=== PATIENT | female | born 1980 | race Hispanic/Latino ===

== ENCOUNTER 2018-02-11 15:21 | Emergency (ER) | payer SELFPAY ==
[~2018-02-11 15:21] MED LIST: ISOVUE-370 76%-LOCM 1 ML ONE
[2018-02-11 16:23] LABS: #Eosinphils 0.1 thou/uL (0.0-0.7); #Monocytes 0.3 thou/uL (0.11-0.59); #Neutrophils 6.2 thou/uL (1.40-6.50); %Basophils 0.1 % (0.0-1.0); %Eosinophils 1.2 % (0.0-10.0); %Lymphocytes 12.8 % (21.0-51.0); %Monocytes 3.8 % (0.0-10.0); %Neutrophils 82.1 % (42.0-75.0); Hemoglobin 14.8 g/dL (12.0-16.0); Mean Corpuscular HGB CONC 33.6 g/dL (32.0-36.0); Mean Corpuscular Volume 98.3 fl (81.0-99.0); Mean Platelet Volume 8.8 fL (7.4-10.4); Platelet Count 193 thou/uL (130-400); RBC Distribution Width 11.3 % (11.5-14.5); White Blood Cell (WBC) Count 7.6 thou/uL (4.8-10.8)
[2018-02-11 16:35] LABS: Bilirubin Negative (Negative); Blood, Urine Negative (Negative); Clarity CLEAR (Clear); Glucose, Urine (Dipstick) 500 mg/dL (Negative); Leukocyte Negative (Negative); Nitrite Negative (Negative); Protein, Urine (Dipstick) Negative (Neg-Trace); Specific Gravity, Urine 1.035 (1.002-1.036)
[2018-02-11 16:36] LABS: Pregnancy Test - Urine (BHCG) Negative (Negative); Pregu Control Background? CLEAR/WHITE (CLR/WHITE); Pregu Control Bar Appear? YES (CONTROL BAR); Specific Gravity 1.035 (1.002-1.036)
[2018-02-11 16:42] LABS: ALT (SGPT) 119 U/L (8-55); AST (SGOT) 79 U/L (5-34); Albumin 4.1 g/dL (3.5-5.0); Alkaline Phosphatase 154 U/L (40-150); Anion Gap 10 mmol/L (10-20); BUN (Urea Nitrogen) 9 mg/dL (7.0-18.7); Bilirubin, Total 0.7 mg/dL (0.2-1.2); Calc. Creatinine Clearance 0 mL/min (70-130); Calcium 8.8 mg/dL (7.8-10.44); Carbon Dioxide 27 mmol/L (22-29); Chloride 102 mmol/L (98-107); Estimated GFR-MDRD Greater than 90; Globulin 3.4 g/dL (2.4-3.5); Glucose 272 mg/dL (70-105); Potassium 3.8 mmol/L (3.5-5.1); Protein, Total 7.5 g/dL (6.0-8.3); Sodium 135 mmol/L (136-145)
[2018-02-11] MEDS ORDERED: Morphine 5 MG/ML SYRINGE ONE ×2 (17:20→17:29)
[2018-02-11] MEDS ORDERED: Ondansetron HCl/PF 4 MG/2 ML Vial ONE (17:23)
[2018-02-11] MEDS ORDERED: Promethazine HCl 25 MG/ML VIAL ONE (19:47)
--- NOTE | 2018-02-11 21:08 | CT ---
CT PULMONARY ANGIO OF CHEST WITH CONTRAST: 02/11/18 Axial tomograms were obtained with pulmonary artery enhancement. Multiplanar reconstruction and 3D po stprocessing. HISTORY: Chest pain. Pulmonary arteries exhibit suboptimal opacification. Peripheral pulmonary emboli cannot be excluded o n this study. There is no evidence of proximal pulmonary embolus in either main pulmonary artery. The mediastinum is unremarkable. The lungs appear clear. There is no evidence of infiltrate. Images thro ugh upper abdomen unremarkable. Thoracic aorta is unremarkable. IMPRESSION: 1. Suboptimal pulmonary artery opacification. No evidence of proximal pulmonary embolus. 2. No evidence of acute lung process. POS: [facility]
== END 2018-02-11 20:51 | disposition home or self-care (01) ==
LOC: ERS 15:21
DX: R07.9 Chest pain, unspecified (principal); R10.9 Unspecified abdominal pain; M54.9 Dorsalgia, unspecified; E66.9 Obesity, unspecified; I10 Essential (primary) hypertension
CPT/HCPCS: 36415; 71275; 80053; 81003; 81025; 83605; 83690; 85025; 87040; 87086; 96361; 96374; 96375; 96376; J2270; J2405; J2550

== ENCOUNTER 2018-05-26 14:53 | Inpatient (IN) | payer SELFPAY ==
[2018-05-26] MEDS ORDERED: Ondansetron ODT 4 MG TAB ONE (15:23)
[2018-05-26] MEDS ORDERED: Pantoprazole 40 MG VIAL ONE (15:23)
[2018-05-26 15:41] LABS: #Eosinphils 0.1 thou/uL (0.0-0.7); #Monocytes 0.4 thou/uL (0.11-0.59); #Neutrophils 4.8 thou/uL (1.40-6.50); %Basophils 0.5 % (0.0-1.0); %Lymphocytes 27.4 % (21.0-51.0); %Monocytes 5.8 % (0.0-10.0); %Neutrophils 65.4 % (42.0-75.0); Hemoglobin 14.8 g/dL (12.0-16.0); Mean Corpuscular HGB CONC 34.3 g/dL (32.0-36.0); Mean Corpuscular Hemoglobin 32.5 pg (27.0-31.0); Mean Corpuscular Volume 94.9 fL (78.0-98.0); Mean Platelet Volume 8.4 fL (7.4-10.4); Platelet Count 202 thou/uL (130-400); RBC Distribution Width 11.1 % (11.5-14.5); Red Blood Cell (RBC) Count 4.54 mill/uL (4.20-5.40); White Blood Cell (WBC) Count 7.3 thou/uL (4.8-10.8)
[2018-05-26 15:48] LABS: Bilirubin Negative (Negative); Blood, Urine Negative (Negative); Clarity CLEAR (Clear); Glucose, Urine (Dipstick) >=1000 mg/dL (Negative); Leukocyte Negative (Negative); Nitrite Negative (Negative); Protein, Urine (Dipstick) Negative (Neg-Trace); Specific Gravity, Urine 1.039 (1.002-1.036); Urobilinogen 0.2 mg/dL (0.2-1.0)
[2018-05-26 15:49] LABS: Pregnancy Test - Urine (BHCG) Negative (Negative); Pregu Control Background? CLEAR/WHITE (CLR/WHITE); Pregu Control Bar Appear? YES (CONTROL BAR); Specific Gravity 1.039 (1.002-1.036)
[2018-05-26 16:03] LABS: ALT (SGPT) 164 U/L (8-55); AST (SGOT) 103 U/L (5-34); Alkaline Phosphatase 162 U/L (40-150); Anion Gap 10 mmol/L (10-20); BUN (Urea Nitrogen) 12 mg/dL (7.0-18.7); Bilirubin, Total 0.5 mg/dL (0.2-1.2); CK (CPK) 71 U/L (29-168); Calc. Creatinine Clearance 0 mL/min (70-130); Calcium 9.5 mg/dL (7.8-10.44); Carbon Dioxide 28 mmol/L (22-29); Chloride 101 mmol/L (98-107); Estimated GFR-MDRD 86; Globulin 3.5 g/dL (2.4-3.5); Glucose 401 mg/dL (70-105); Lipase 25 U/L (8-78); Protein, Total 7.5 g/dL (6.0-8.3); Sodium 135 mmol/L (136-145)
--- NOTE | 2018-05-26 16:16 | ULT ---
RIGHT UPPER QUADRANT ULTRASOUND: 05/26/18 HISTORY: Pain. COMPARISON: 01/05/17. TECHNIQUE: Utilizing multihertz transducer, sonographic imaging of the right upper quadrant is performed in the longitudinal transverse plane. FINDINGS: The pancreas is poorly defined due to bowel gas. Heterogeneous echotexture of the liver due to hepat ic steatosis or hepatocellular disease. Subsequent evaluation for hepatic masses and intrahepatic harshal iary dilatation is limited. Right hepatic lobe is 16.6 cm. Main portal vein is patent. Appropriate directional flow. Suboptimal evaluation of the common bile du ct. No sonographic evidence of cholelithiasis, bladder wall thickening, or pericholecystic fluid. Neg ative Ovalles's sign is reported. Right kidney: No hydronephrosis. Normal cortical echotexture. 10.4 x 5.0 x 5.2 cm. IMPRESSION: 1. No sonographic evidence of cholelithiasis or cholecystitis. 2. Heterogeneous echotexture of the liver due to hepatic steatosis or hepatocellular disease. POS: [facility]
[2018-05-26 17:40] LABS: HBSAg Index 0.35 S/CO (0-0.99); Hep A IgM AB Non-Reactive (NonReactive); Hep B Surf Ag Non-Reactive S/CO (NonReactive); Hep C IgG Ab Non-Reactive (NonReactive); Hepatitis B Core IGM Abs Non-Reactive (NonReactive)
[2018-05-26] MEDS ORDERED: Enoxaparin Sodium 80 MG/0.8 ML SYRINGE ONE (19:02)
[2018-05-26] MEDS ORDERED: Enoxaparin Sodium 100 MG/ML SYRINGE ONE (19:08)
--- NOTE | 2018-05-26 21:00 | ULT ---
ULTRASOUND WITH DOPPLER DUPLEX VENOUS LOWER EXTREMITIES BILATERAL: 05/26/18 HISTORY: 38-year-old female with bilateral lower extremity pain and edema. TECHNIQUE: Color flow Doppler, spectral waveform analysis of pulsed Doppler, and jackson-scale imaging with shin teddy and augmentation, were used to evaluate the bilateral common femoral, femoral, popliteal, burlap spreader ior tibial, and superficial femoral, veins; and the proximal portions of the profunda femoral and gre ater saphenous, veins. FINDINGS: There is normal compressibility, demonstration of blood flow by color Doppler and pulsed Doppler, and response to augmentation, in all interrogated veins. IMPRESSION: Negative. No deep vein thrombosis in the bilateral lower extremities. will[] POS: [facility]
[2018-05-26] MEDS ORDERED: Sodium Chloride 0.9% 1,000 ML IV SCH (21:17)
[2018-05-26] MEDS ORDERED: Ondansetron HCl/PF 4 MG/2 ML Vial IVP PRN ×2 (21:17→22:01)
[2018-05-26] MEDS ORDERED: Morphine 4 MG/ML VIAL IV PRN (21:19)
[2018-05-26 21:27] VITALS: BMI 36.0
--- NOTE | 2018-05-26 21:39 | CT ---
CT ABDOMEN WITH CONTRAST CT PELVIS WITH CONTRAST: DATE: 05/26/18 HISTORY: 38-year-old female with epigastric abdominal pain with nausea. Dysuria and urinary frequency. COMPARISON: Noncontrast CT of 01/05/17. TECHNIQUE: IV injection of iodinated contrast media: 100 mL of Isovue 370. Oral contrast media: Not administered. FINDINGS: Liver is diffusely low in attenuation consistent with fatty liver. No focal hepatic mass lesion. No p ortal vein thrombosis. The upper portion of the intrahepatic portion of the inferior vena cava is sev erely narrowed (It is not possible to evaluate this on the previous noncontrast chest CT of 01/05/17. T he inferior vena cava was not opacified on the CT pulmonary angiogram of 02/01/18). The rest of the int rahepatic inferior vena cava is clear and of normal caliber, and normally opacified with contrast med ia. There is complete absence of IV contrast opacification of the rest of the inferior vena cava infe rior to the bilateral renal veins, and this is also true of the bilateral common iliac, internal imri c, and external iliac veins. The bilateral renal veins are patent and clear. The abdominal aorta and the iliac arteries are patent and clear. The uterus, abdominal aorta, bilateral kidneys, adrenals, pa ncreas, and spleen, are normal. No small bowel dilation. Normal appendix. No ascites or pneumoperiton eum. Lung bases are grossly clear. IMPRESSION: 1. 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 2. No contrast opacification of the inferior vena cava inferior to the hepatic vein. There is a possibility that the inferior vena cava and the iliac veins are thrombosed and occluded, although thi s appearance could be due to lack of contrast opacification of the blood in these vessels. Recommend bilateral lower extremity venous doppler ultrasound for further evaluation. FREDDIE Paulino POS: [facility]
[2018-05-26] MEDS ORDERED: Senokot 8.6 MG TAB PO PRN ×2 (22:01)
[2018-05-26] MEDS ORDERED: Nitroglycerin 0.4 MG TAB (25 Tab Bottle) SL PRN (22:01)
[2018-05-26] MEDS ORDERED: Diabetic Tussin 200 MG/10 ML UDCUP PO PRN (22:01)
[2018-05-26] MEDS ORDERED: hydrALAZINE 20 MG/ML VIAL SLOW IVP PRN (22:01)
[2018-05-26] MEDS ORDERED: Bisacodyl 5 MG TAB PO PRN ×2 (22:01)
[2018-05-26] MEDS ORDERED: cloNIDine 0.1 MG TAB PO PRN (22:01)
[2018-05-26] MEDS ORDERED: Mag-Al 1200 mg/1200 mg/30 ML UDCUP PO PRN (22:01)
[2018-05-26] MEDS ORDERED: Loratadine 10 MG TAB PO PRN (22:01)
[2018-05-26] MEDS ORDERED: Benzonatate 100 MG CAP PO PRN (22:01)
[2018-05-26] MEDS ORDERED: Calcium Carbonate 500 MG ChewTAB PO PRN (22:01)
[2018-05-26] MEDS: Sodium Chloride 0.9% 1,000 ML IV SCH (22:22)
[2018-05-26 23:00] LABS: Prothrombin Time 13.6 SEC (12.0-14.7)
[2018-05-26 23:03] LABS: Amphetamine Not Detected (NotDetected); Barbiturates Screen Not Detected (NotDetected); Benzodiazepine Screen Not Detected (NotDetected); Cocaine Metabolite Screen Not Detected (NotDetected); Medtox Control Line Valid? VALID (VALID); Medtox Reader # READER 4; Methadone Not Detected (NotDetected); Methamphetamine Not Detected (NotDetected); Opiate Screen Not Detected (NotDetected); Oxycodone Screen Not Detected (NotDetected); Phencyclidine (PCP) Not Detected (NotDetected); THC/Cannabinoid Screen Not Detected (NotDetected); Tricyclic Screen Not Detected (NotDetected)
[2018-05-26 23:14] LABS: D-Dimer Test Less than 0.27 *mcg/mL (0.27-0.43)
[2018-05-26 23:30] LABS: HIV (1/2) Antibody/Antigen Non-Reactive (NonReactive); HIV 1/2 INDEX 0.07 S/CO (<1.00)
[2018-05-26] MEDS ORDERED: HumaLOG 300 UNITS/3 ML VIAL SC PRN ×2 (23:40)
[2018-05-26] MEDS ORDERED: Dextrose 50% Abboject 50 ML SYRINGE SLOW IVP PRN (23:40)
[2018-05-26] MEDS ORDERED: Dextrose 5% in Water 1,000 ML IV PRN (23:40)
[2018-05-27] MEDS: traMADol HCl 50 MG TAB PO PRN ×2 (00:06→11:27)
--- NOTE | 2018-05-27 00:40 | HP ---
DATE OF ADMISSION: 05/26/2018 CHIEF COMPLAINT: Abdominal pain. HISTORY OF PRESENTING ILLNESS: Ms. Us is a 38-year-old female with past medical history of hypertension and diabetes, who does not have a primary care physician and does not take any medica tion for this, presented to the emergency room with the above-mentioned complaint. History is mainly obtained by the patient herself and electronic medical records have been reviewed extensively. According to Ms. Us, she has been having abdominal pain for multiple years. She underwent an endo scopy in 2008 and was told that there is mild inflammation, but no ulcers, but she was told to keep a n eye on that. This year, starting in December, her symptoms have been getting worse. Her main symp mundo is epigastric abdominal pain. She has sought attention in the emergency room in January of this ye ar and underwent a CT scan and abdominal ultrasound at that time, which did not show any specific fin dings. A CT chest was done, which was negative for pulmonary embolism at that time. Now, the patient returns with worsening symptoms. She reports that for the last 2 weeks, her epigast hector abdominal pain is really bad. It is exacerbated by eating or drinking anything, even water. She also has a background abdominal pain, which never goes away. She denies any weight loss or excessiv e night sweats. She denies any fever, chills, nausea, vomiting, diarrhea. She denies any dysuria, f requency, or urgency. She denies any hematochezia or melena, but has noticed that her stools are grayson ker. She also has a right-sided upper abdominal pain. The epigastric pain traverses through her maria fernanda es to her back. She denies being on any medications at this time. She does not take any contracepti ves that are hormonal in nature. She denies any recent travels. She denies any family history or pe rsonal history of bleeding or clotting disorders. Her workup in the emergency room today included an abdominal ultrasound for the right upper quadrant tenderness and pain, which shows no evidence of cholelithiasis or cholecystitis. Her liver shows yasmin dence of steatosis or fatty infiltration. She then underwent a CT scan of the abdomen and pelvis wit h contrast, which showed significant findings of thrombosis of the intrahepatic inferior vena cava, w hich is also severely stenotic. There is also significant thrombosis including the bilateral common iliac, internal iliac, and external iliac veins. Abdominal aorta and the arteries are patent and tracy ar. There are no masses seen. No focal hepatic lesions. No portal vein thrombosis. She underwent a lower extremity Doppler ultrasound, which is negative for DVT. She was treated with 1 dose of ther apeutic Lovenox at 1 mg/kg in the emergency room and is now being admitted for further evaluation and care. Her lab examination shows normal lipase, but elevated liver enzymes, which are found to be el evated since at least 2016 in the 100 range. The rest of her workup is rather unremarkable. Her uri ne shows glucosuria. Urine test is negative. PAST MEDICAL HISTORY: 1. Diabetes mellitus, noncompliant with medications. 2. Hypertension per the patient. 3. History of gestational diabetes and preeclampsia. PAST SURGICAL HISTORY: section x3 and tubal ligation. PSYCHIATRIC HISTORY: No anxiety, no depression. SOCIAL HISTORY: No history of drug, tobacco, or alcohol abuse. She is and lives at home wit h family. ALLERGIES: TYLENOL. MEDICATIONS: None. FAMILY HISTORY: Significant for coronary artery disease with multiple stenting in her father. Her f ather also had arterial disease in the legs. Multiple family members with diabetes mellitus. REVIEW OF SYSTEMS: The following complete review of systems was negative, unless otherwise mentioned in the HPI or below: Constitutional: Weight loss or gain, abil ity to conduct usual activities. Skin: Rash, itching. Eyes: Double vision, pain. ENT/Mouth: Nos e bleeding, neck stiffness, pain, tenderness. Cardiovascular: Palpitations, dyspnea on exertion, or thopnea. Respiratory: Shortness of breath, wheezing, cough, hemoptysis, fever, or night sweats. Ga strointestinal: Poor appetite, abdominal pain, heartburn, nausea, vomiting, constipation, or diarrhea. Genitourinary: Urgency, frequency, dysuria, nocturia. Musculoskeletal: Pain, swelling. Neurologic/Psychiatric: Anxiety, depression. Allergy/Immunologic: Skin rash, bleeding tendency. A 12-point review of systems is done and is negative except for those mentioned in the history and ph ysical. LABORATORY DATA: CBC is unremarkable. Her PT, PTT, and INR are normal. D-dimer is less than 0.27. Serum chemistry shows sodium of 135, but blood sugar is 401. AST 103, ALT 164, alkaline phosphatase 162 with normal bilirubin. Her albumin and globulin are unremarkable with albumin globulin ratio of 1.1. Lipase is 25. Homocysteine is 5.83. Urinalysis is negative for any evidence of infection. U rine drug screen is negative and hepatitis serology for acute hepatitis is negative. CT scan of the abdomen and pelvis, as well as lower extremity ultrasound and abdominal ultrasound as per the HPI. 12-lead EKG by my review shows normal sinus rhythm at 84 beats per minute. PHYSICAL EXAMINATION: VITAL SIGNS: Most recent vital signs, temperature 98.6, pulse of 72, respirations 16, saturating 97% on room air, blood pressure 153/71. Blood pressure on admission was 136/81, temperature 98.6. GENERAL: No acute distress. She is awake, alert, oriented x3. Family is at bedside. HEENT: Mucous membrane is moist and pink. No oropharyngeal exudate or erythema. Head is normocepha lic, atraumatic. Pupils are equal, reactive to light and accommodation. Extraocular movement intact . NECK: Supple without any lymphadenopathy, JVD, or bruit. CHEST: Clear to auscultation without any wheezing, rales, or rhonchi. Rate and rhythm are regular w ithout any murmur, rubs, or gallops. ABDOMEN: Obese. Tender to palpation in the epigastric and right upper quadrant region. No hepatosp lenomegaly felt. No guarding, rebound, or rigidity. No suprapubic tenderness. No CVA tenderness. EXTREMITIES: Free of any cyanosis, clubbing, or edema. NEUROLOGIC: Nonfocal. SKIN: Free of any rashes or bruises. Feel warm and dry to touch. PSYCHIATRIC: Normal affect. IMPRESSION AND PLAN: 1. 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 There is no evidence of deep venous thrombosis in both lower extremities. The cause is unknown at this time. In the presenc e of elevated liver enzymes, hepatocellular disease would be considered as well. She also is having significant epigastric symptoms. She is not on any hormonal contraceptives. No family history of bl eeding or clotting disorders. Workup at this time will be initiated to rule out any malignancies. W e will obtain a CT scan of the chest in the morning as she already has gotten enough contrast for ton ight. We will also obtain a pelvic ultrasound to rule out ovarian or uterine malignancies causing co mpression in the inferior vena cava as there is also mention of the stenosis of the inferior vena cav a. Meanwhile, she will be continued on full-dose therapeutic anticoagulation with Lovenox at 1 mg/kg b.i.d. dosing. Hypercoagulable studies will be sent. We will also request consultation with Hemato logy for further diagnostic recommendations. 2. Epigastric pain. The patient most likely has peptic ulcer disease on top of her other veno-occlu sive disease on presentation. Also, in the light of elevated liver enzymes chronically, we will requ est consultation with Gastroenterology for a possible endoscopy. At this time, she will be treated w ith proton pump inhibitor IV for now and we will check occult blood screening to rule out any occult gastrointestinal bleed, as the patient is fully anticoagulated at this time. 3. Hypertension. The patient currently is not taking any medication, but most likely will needed to be started on chronic antihypertensive therapy. We will start her on low dose of amlodipine and tit rate as needed. 4. Uncontrolled diabetes mellitus. The patient has been noncompliant and does not take any medicati on for this. We will check a hemoglobin A1c and meanwhile put her on insulin sliding scale with freq uent Accu-Cheks. She will need prescriptions upon discharge based on her hemoglobin A1c. 5. Add p.r.n. medication orders and continue supportive care. She will be admitted on telemetry uni t and started on gentle IV fluid hydration, as she has gotten contrast tonight and will require more contrast for further studies in the morning. DISPOSITION: Ms. Us is currently being admitted for extensive veno-occlusive disease of the infer ior vena cava and bilateral iliac arteries. Estimated length of stay is at least 2-3 midnight. Furt her management will depend upon her clinical course.
[2018-05-27 05:32] LABS: Hemoglobin A1c 9.9 % (4.0-6.0)
[2018-05-27 05:38] LABS: #Basophils 0.1 thou/uL (0.0-0.2); #Eosinphils 0.2 thou/uL (0.0-0.7); #Lymphocytes 2.5 thou/uL (1.20-3.40); #Monocytes 0.4 thou/uL (0.11-0.59); #Neutrophils 3.6 thou/uL (1.40-6.50); %Basophils 0.9 % (0.0-1.0); %Eosinophils 2.4 % (0.0-10.0); %Lymphocytes 36.9 % (21.0-51.0); %Monocytes 5.7 % (0.0-10.0); %Neutrophils 54.1 % (42.0-75.0); Hemoglobin 14.2 g/dL (12.0-16.0); Mean Corpuscular HGB CONC 32.7 g/dL (32.0-36.0); Mean Corpuscular Hemoglobin 31.3 pg (27.0-31.0); Mean Corpuscular Volume 95.9 fL (78.0-98.0); Mean Platelet Volume 8.7 fL (7.4-10.4); Platelet Count 194 thou/uL (130-400); RBC Distribution Width 11.1 % (11.5-14.5); Red Blood Cell (RBC) Count 4.54 mill/uL (4.20-5.40); White Blood Cell (WBC) Count 6.7 thou/uL (4.8-10.8)
[2018-05-27 05:54] LABS: Anion Gap 10 mmol/L (10-20); BUN (Urea Nitrogen) 11 mg/dL (7.0-18.7); Calc. Creatinine Clearance 156 mL/min (70-130); Calcium 8.7 mg/dL (7.8-10.44); Carbon Dioxide 27 mmol/L (22-29); Chloride 103 mmol/L (98-107); Estimated GFR-MDRD Greater than 90; Glucose 215 mg/dL (70-105); Potassium 3.8 mmol/L (3.5-5.1); Sodium 136 mmol/L (136-145)
[2018-05-27] MEDS ORDERED: Enoxaparin Sodium 40 MG/0.4 ML SYRINGE SC SCH (09:00)
[2018-05-27] MEDS ORDERED: Famotidine/PF 20 mg/2ml Vial SLOW IVP SCH (09:00)
--- NOTE | 2018-05-27 10:19 | ULT ---
PELVIC ULTRASOUND INCLUDING TRANSABDOMINAL AND TRANSVAGINAL EXAMINATION: HISTORY: A 38-year-old female with a history of irregular menstrual cycles. Prior tubal ligation and C-sectio n. Possible mass on physical examination. TECHNIQUE: No vascular duplex examination was performed. FINDINGS: The uterus measures 8.4 x 3.9 x 4.2 cm, with a 0.4 cm thickened endometrium. Neither right or left o vary is demonstrated. Multiple nabothian cysts. Trace free fluid between the uterus and the bladder . IMPRESSION: 1. Nonvisualized ovaries. 2. Unremarkable uterus. 3. No other significant abnormality. POS: [facility]
--- NOTE | 2018-05-27 11:04 | PDOC.PN ---
- Subjective Encounter Start Date: 05/27/18 Encounter Start Time: 10:58 CONTINUES TO HAVE WAVES OF EPIGASTRIC PAIN. HAS BEEN PRESENT SINCE SHE WAS WITH HER LAST CHILD SEVERAL YEARS AGO. GETTING WORSE. EARLY SATIETY. RADIATES TO HER BACK. REPORTS THAT SHE HAS HAD ENDOSCOPY IN THE PAST AND WAS TOLD THAT WHAT SHE HAD COULD 'TURN INTO AN ULCER'. NO MELENA/HEMATOCHEZIA. HAS HAD NO DEBILITY OR IMMOBILITY. - Objective Vital Signs & Weight: Vital Signs (12 hours) Temp Pulse Resp BP Pulse Ox 05/27/18 07:41 97.6 F 66 16 121/66 95 05/27/18 04:00 98.0 F 62 18 118/56 L 97 Weight Weight 184 lb 8 oz I&O: 05/26/18 05/27/18 05/28/18 06:59 06:59 06:59 Intake Total 1235 Output Total 750 Balance 485 Result Diagrams: 05/27/18 05:09 05/27/18 05:09 Additional Labs: Accuchecks 05/27/18 05/27/18 05:50 00:10 POC Glucose 207 H 173 H Phys Exam - Physical Examination Constitutional: NAD Neck: no JVD, supple Respiratory: no wheezing, no rales, no rhonchi, clear to auscultation bilateral Cardiovascular: RRR, no significant murmur Gastrointestinal: soft, non-tender, no distention, positive bowel sounds TTP IN THE EPIGASTRIUM. NO MASSES. Musculoskeletal: no edema, pulses present Neurological: non-focal Psychiatric: normal affect, A&O x 3 Skin: normal turgor Dx/Plan (1) Epigastric abdominal pain Code(s): R10.13 - EPIGASTRIC PAIN Status: Acute Comment: LONG STANDING, BUT WORSENING. NEGATIVE US. CT WITH ONLY AN UNUSUAL FINDING OF THE IVC, BUT DOES NOT APPEAR PATHOLOGIC. APPARENT HISTORY OF GASTRITIS. GI CONSULT PENDING. (2) Abnormal findings on diagnostic imaging of abdomen Code(s): R93.5 - ABN FINDINGS ON DX IMAGING OF ABD REGIONS, INC RETROPERITON Status: Acute Comment: INITIAL IMAGING OF THE ABDOMEN WAS CONCERNING FOR POSSIBLE THROMBOSIS OF THE ILIACS AND IVC. D/W RADIOLOGY. LIKELY NOT THROMBOSIS BASED ON IMAGING AND THE LOW D-DIMER. DOES NOT FIT CLINICAL PICTURE EITHER. CANCER HEMATOLOGY CONSULT. (3) Nausea & vomiting Code(s): R11.2 - NAUSEA WITH VOMITING, UNSPECIFIED Status: Acute Comment: ONE EPISODE. PRN ANTIEMETICS. - Plan * ABOVE.
--- NOTE | 2018-05-27 11:21 | CT ---
CTA OF THE CHEST WITH CONTRAST: COMPARISON: 02/11/18. HISTORY: Shortness of breath and mid epigastric abdominal pain. Fullness after eating. TECHNIQUE: Multiple contiguous axial images were obtained in a CTA of the chest with contrast per pulmonary embo lism protocol. Three-D oblique MIP reformats and direct coronal reformats were performed. FINDINGS: The pulmonary arteries are well opacified without filling defects to suggest pulmonary emboli. The h eart is normal in size without focal cardiac abnormality. No hilar or mediastinal lymphadenopathy ar e present. No focal infiltrates or nodules are seen in the lungs. No pneumothorax or pleural effusion are prese nt. There is contrast in the gallbladder from recent contrast examination. The chest wall soft tissues a re unremarkable. The bones are unremarkable. IMPRESSION: No evidence of pulmonary thromboembolism. POS: [facility]
[2018-05-27] MEDS: Pantoprazole 40 MG VIAL IVP SCH (12:52)
[2018-05-27] MEDS: Sodium Chloride 0.9% 1,000 ML IV SCH (12:55)
[2018-05-27 15:15] LABS: Protein C Activity 109 % (78-152)
[2018-05-27 15:16] LABS: Factor VIII Test 165.9 % ACTIVE (56-157)
[2018-05-27] MEDS: Enoxaparin Sodium 100 MG/ML SYRINGE SC SCH ×2 (15:34→20:22)
[2018-05-27] MEDS ORDERED: Ondansetron ODT 4 MG TAB PO PRN (16:19)
--- NOTE | 2018-05-27 21:21 | PDOC.EVN ---
Event Note - Event Note Event Note: Discussed with the radiologist today. Reviewed the findings of the imaging in light of the negative venogram. He conferred with other radiologists and they believe collectively that there is no clot in the IVC or iliacs. There is some narrowing, but no evidence of thrombosis. This is consistent with the low d- dimer. Will stop the Lovenox and pursue evaluation of the abdominal pain. Cancel consult for hematology.
--- NOTE | 2018-05-27 22:35 | CON ---
DATE OF CONSULTATION: 05/27/2018 REASON FOR CONSULTATION: Elevated liver function tests, abdominal pain. CONSULTING PHYSICIAN: Aline Murguia MD HISTORY OF PRESENT ILLNESS: The patient is a 38-year-old female with past medical history of hyperte nsion, diabetes, and H. pylori infection status post triple therapy with H2 alise in 2009, presenti with complaints of abdominal pain and elevated liver function test on labs. She states that she h as been having intermittent midepigastric abdominal pain that has been present for the last 9 years. The pain is characterized as a pressure type pain intermittent, located primarily in the midepigastr ic and left upper quadrant region. It would radiate to the left flank and left upper back. The pain is worse with eating and drinking any food stuff with no specific food trigger as well as increased physical activity. The pain is better with not eating and having a bowel movement. Associated sympt oms include abdominal bloating, nausea with vomiting of nonbloody emesis. She also endorses having one semi-solid bowel movement every 2-3 days with no special maneuvers in order to defecate. Upon art review, she has been evaluated multiple times over the last 6-12 months for this epigastric abdom inal pain, the most recent being in January of this year where she underwent a CT scan and abdominal ul trasound at that time which did not show any specific findings. Laboratory evaluation at that time d id show a modest elevation in her LFTs, but otherwise did not show any other additional abnormalities . However, over the last 2 weeks, she has been having increased/worsening of her epigastric abdomina l pain characterized as the symptoms as above. Currently, she denies any fevers, chills, vomiting, d iarrhea, constipation, dysphagia, odynophagia or weight loss. She also denies any GI bleeding. Of n antoninorodrick, upon chart review, she has had elevated LFTs on every single blood draw obtained within the [facility] dating back to 2015. Also, of note, she underwent an EGD in 01/2010, which was relati vely normal except for biopsy showing the presence of H. pylori at approximately the GE junction. Sh rodrick was subsequently placed on amoxicillin, Biaxin and an H2 alise x14 days for treatment. Confirmat ion of eradication does not seem to have been performed. REVIEW OF SYSTEMS: A 10-category review of systems was obtained with all responses negative except f or the pertinent positives as listed in the HPI. PAST MEDICAL HISTORY: As per HPI. PAST SURGICAL HISTORY: x3, bilateral tubal ligation. FAMILY HISTORY: Denies any GI malignancies. SOCIAL HISTORY: Denies any tobacco, alcohol or illicit drug use. OUTPATIENT MEDICATIONS: None. ALLERGIES: TYLENOL. PHYSICAL EXAMINATION: VITAL SIGNS: Temperature 97.6, pulse 66, blood pressure 121/66, respiratory rate 16, satting 95% on room air. GENERAL: The patient is lying in bed, in no acute distress. He is alert and oriented x4. NECK: Supple. No JVD noted. CARDIOVASCULAR: Regular rate and rhythm with no discernible murmurs, gallops or rubs. RESPIRATORY: Clear to auscultation bilaterally with no discernible wheezes or rales. ABDOMEN: Normoactive bowel sounds, soft, nondistended. Tenderness to palpation in the midepigastric and left upper quadrant. Carnett sign positive. EXTREMITIES: No cyanosis, clubbing or edema. LABORATORY DATA: CBC with a white blood cell count of 6.7, hemoglobin 14.2, hematocrit 43.5, platele ts 194. INR 1.0. Chemistry with a sodium 136, potassium 3.8, chloride 103, CO2 of 27, BUN 11, creat inine 0.64, glucose 215, AST 103, ALT 164, alkaline phosphatase 162, total bilirubin 0.5, albumin 4, lipase 25. Acute hepatitis panel negative. HIV negative. INR 1.0. 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 There is complete absence of IV contrast opacification in the rest of the infer ior vena cava, inferior to the bilateral renal veins. It is also true of the bilateral common iliac, internal iliac and external iliac veins. Bilateral ultrasound of the bilateral lower extremities di d not show any evidence of deep vein thrombosis on 05/26/2018. ASSESSMENT AND PLAN: The patient is a 38-year-old female with past medical history of hypertension, diabetes, H. pylori status post triple therapy in 2009, presenting with complaints of midepigastric a bdominal pain and elevated liver function test. Midepigastric abdominal pain: The patient is presenting with a long-term history of mid epigastric/l eft upper quadrant abdominal pain that has been present for the last 9 years. The pain is characteri zed as a pressure type pain, intermittent with periods of complete pain relief and would radiate to t he left upper back. The pain was worse with eating and drinking and physical activity, better with n ot eating and having a bowel movement. Upon questioning, she states that this pain is very similar t o the pain that she started having in , for which she underwent an upper endoscopy. The [facility] er endoscopy in 01/2010 did not show any overt findings, but was positive for H. pylori infection. S he was subsequently treated with amoxicillin, clarithromycin, and an H2 alise with no confirmation of eradication performed. At this point, given her history of H. pylori infection and no confirmatio n of eradication, we could be dealing with resistant form of H. pylori or inadequately treated H. pyl mignon due to the presence of H2 alise on the prior treatment regimen. With a history of H. pylori, g astric ulcerations or peptic ulcer disease is also within the differential. Further differential cou ld include median arcuate ligament syndrome, occlusion of the inferior vena cava as part of the intra hepatic portion as seen on the CT scan. Esophagitis, gastritis, GERD, thoracic radiculopathy due to Carnett's sign being positive and/or possible GI neoplasm (less likely). RECOMMENDATIONS: 1. We would make the patient n.p.o. in preparation for upper endoscopy tomorrow for reevaluation of the upper gastrointestinal tract. 2. We will obtain biopsies tomorrow during the EGD to confirm eradication of H. pylori. If H. pylor i still present, we would place the patient on quadruple therapy. 3. 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 4. Elevated liver function tests. The patient is also presenting with a chronic history of elevated liver function tests noted on each lab draw obtained within the [facility]. They have always been modestly elevated with the AST and ALT ranging between 90-200. Given the presence of hepatic steatosis, nonalcoholic fatty liver d isease could potentially generate this finding. However, with the CT scan showing the new finding of an intrahepatic vein thrombosis, congestive hepatopathy could also be contributing to the elevated L FTs. At this point, given the chronic nature of her elevated LFTs, a full liver workup is indicated. RECOMMENDATIONS: 1. I will order labs for full liver workup for possible underlying liver disease contributing to mart vated liver function tests. 2. Agree with anticoagulation as stated above that could contribute to elevated LFTs. We will continue to follow. Please call with any additional questions.
[2018-05-28] MEDS: Sodium Chloride 0.9% 1,000 ML IV SCH ×2 (05:32→14:26)
[2018-05-28 05:57] LABS: Iron 107 ug/dL (50-170); Iron Binding Capacity, Total 239 mcg/dL (265-497)
[2018-05-28] MEDS ORDERED: PROPOFOL 200 MG/20 ML VIAL ONE (10:10)
[2018-05-28] MEDS ORDERED: Lidocaine 1% PF 5 ML VIAL ONE (10:10)
[2018-05-28 11:59] LABS: ANA Symphony (Qualitative) Negative (Negative); EliA Vaculitis New Method **** NEW METHOD ****; Mitochondrial Ab 0.7 U/mL (<4 Negative); dsDNA IgG Antibody 2.1 IU/mL (<10 Negative)
[2018-05-28 12:39] LABS: Cardiolipin IgA Ab 2.5 APL-U/mL (<14 Negative); Cardiolipin IgG Ab 1.5 GPL-U/mL (<10 Negative); Cardiolipin IgM Ab Less than 0.8 MPL-U/mL (<10 Negative); EliA APS New Method **** NEW METHOD ****
[2018-05-28] MEDS ORDERED: Ondansetron HCl/PF 4 MG/2 ML Vial IVP PRN (12:53)
[2018-05-28] MEDS ORDERED: Promethazine HCl 25 MG/ML VIAL SLOW IVP PRN (12:53)
[2018-05-28] MEDS ORDERED: Promethazine HCl 25 MG/ML VIAL IM PRN (12:53)
--- NOTE | 2018-05-28 13:13 | OP ---
DATE OF PROCEDURE: 05/28/2018 SURGEON: Dr. Jeffrey Beach PROCEDURE: Esophagogastroduodenoscopy with biopsy. INDICATION FOR PROCEDURE: Abdominal pain, history of H. pylori gastritis. DESCRIPTION OF PROCEDURE: After the risks and benefits of the procedure were explained to the patien t including risks of bleeding, infection, perforation, reaction to anesthesia and/or pain, informed c onsent was obtained. The patient was then taken to the endoscopy suite where deep sedation was admin istered via propofol and anesthesia support. Once adequate sedation was achieved, the standard gastr oscope was introduced into the mouth with intubation of the esophagus, stomach and proximal small int estine with the findings listed below. The patient tolerated the procedure well with no immediate pe rioperative complications. FINDINGS: ESOPHAGUS: Normal appearing mucosa was seen in the proximal, mid and distal esophagus, an irregular Z-line was seen at the GE junction at 35 cm past the incisors. There was no evidence of erosions, ul cerations, mass lesions or active/recent bleeding. STOMACH: Normal appearing mucosa was seen in the gastric cardia, fundus, body and incisura. Normal appearing mucosa was also seen in the proximal antrum, but minimally increased mucosal erythema was s een in the prepyloric region at the entry point to the small intestine. Multiple random biopsies wer e taken from the antrum, incisura and body for evaluation of current H. pylori status. Otherwise, th ere was no evidence of erosions, ulcerations, mass lesions or active/recent bleeding. DUODENUM: Normal appearing mucosa was seen in both the duodenal bulb and second portion of the duode num. There was no evidence of erosions, ulcerations, mass lesions or active/recent bleeding. IMPRESSION: 1. Minimal mucosal erythema in the prepyloric region concerning for continued H. pylori gastritis, s tatus post biopsies. 2. Otherwise, normal upper endoscopy. 3. No etiology for her abdominal pain was seen during this examination. RECOMMENDATIONS: 1. We will follow up on biopsy results and would place the patient on quadruple therapy if positive for H. pylori. 2. We would continue the patient on PPI 40 mg daily. 3. We will plan for colonoscopy tomorrow for further evaluation of midepigastric/left upper quadrant abdominal pain. We will place order for a clear liquid diet today with Theodora prep tonight in ant icipation for the colonoscopy tomorrow. We will continue to follow. Please call with any questions.
[2018-05-28] MEDS: Pantoprazole 40 MG VIAL IVP SCH (14:25)
[2018-05-28] MEDS ORDERED: GoLYTELY 4,000 ml Bottle PO SCH (15:15)
[2018-05-28] MEDS: traMADol HCl 50 MG TAB PO PRN (20:14)
--- NOTE | 2018-05-28 20:37 | PDOC.PN ---
- Subjective Encounter Start Date: 05/28/18 Encounter Start Time: 15:00 HAD EGD TODAY. TOLERATED IT WELL. STILL HAS SOME DISCOMFORT. - Objective Vital Signs & Weight: Vital Signs (12 hours) Temp Pulse Resp BP Pulse Ox 05/28/18 16:00 98.4 F 64 16 121/80 95 05/28/18 13:33 98.0 F 70 16 116/74 95 Weight Admit Weight 184 lb 8 oz Weight 184 lb 8 oz I&O: 05/27/18 05/28/18 05/29/18 06:59 06:59 06:59 Intake Total 1235 Output Total 750 Balance 485 Result Diagrams: 05/27/18 05:09 05/27/18 05:09 Additional Labs: Accuchecks 05/28/18 05/28/18 05/27/18 16:55 05:47 21:05 POC Glucose 186 H 188 H 229 H Phys Exam - Physical Examination Constitutional: NAD HEENT: PERRLA, oral pharynx no lesions Neck: no JVD, supple Respiratory: no wheezing, no rales, no rhonchi, clear to auscultation bilateral Cardiovascular: RRR, no significant murmur Gastrointestinal: soft, non-tender, no distention, positive bowel sounds MILD UPPER ABD TTP Psychiatric: normal affect Dx/Plan (1) Epigastric abdominal pain Code(s): R10.13 - EPIGASTRIC PAIN Status: Acute Comment: LONG STANDING, BUT WORSENING. NEGATIVE US. CT NEGATIVE. EGD WITH SOME MILD GASTRITIS APPEARANCE. PER GI, TREAT H. PYLORI AND CONTINUE PPI COLONSOCOPY IN AM. (2) Abnormal findings on diagnostic imaging of abdomen Code(s): R93.5 - ABN FINDINGS ON DX IMAGING OF ABD REGIONS, INC RETROPERITON Status: Acute Comment: INITIAL IMAGING OF THE ABDOMEN WAS CONCERNING FOR POSSIBLE THROMBOSIS OF THE ILIACS AND IVC. D/W RADIOLOGY. LIKELY NOT THROMBOSIS BASED ON IMAGING AND THE LOW D-DIMER. DOES NOT FIT CLINICAL PICTURE EITHER. CANCEL HEMATOLOGY CONSULT. (3) Nausea & vomiting Code(s): R11.2 - NAUSEA WITH VOMITING, UNSPECIFIED Status: Acute Comment: ONE EPISODE. PRN ANTIEMETICS. (4) Diabetes Code(s): E11.9 - TYPE 2 DIABETES MELLITUS WITHOUT COMPLICATIONS Status: Acute Qualifiers: Diabetes mellitus type: type 2 Diabetes mellitus nursing home insulin use: without nursing home use Diabetes mellitus complication status: without complication Qualified Code(s): E11.9 - Type 2 diabetes mellitus without complications Plan: DISCUSSED THIS WITH THE PATIENT. SHE HAS NOT BEEN TREATING THE DIABETES AT HOME. NOT MONITORING. SHE IS WILLING TO DO SO GOING FORWARD. - Plan * .
[2018-05-29] MEDS: Sodium Chloride 0.9% 1,000 ML IV SCH (02:01)
[2018-05-29] MEDS: Pantoprazole 40 MG VIAL IVP SCH (09:09)
[2018-05-29 12:48] VITALS: BP 138/78; TEMP 98
--- NOTE | 2018-05-29 13:56 | OP ---
DATE OF PROCEDURE: 05/29/2018 PROCEDURE: Colonoscopy (diagnostic). INDICATION FOR PROCEDURE: Left upper quadrant abdominal pain. DESCRIPTION OF PROCEDURE: After the risks and benefits of the procedure were explained to the patien t including risks of bleeding, infection, perforation, reactions to anesthesia and/or pain, informed consent was obtained. The patient was then taken to the endoscopy suite where deep sedation was admi nistered via propofol and anesthesia support. Once adequate sedation was achieved, an external exami nation was performed followed by introduction of the standard colonoscope into the rectum and advance d to the terminal ileum with ease and with no difficulty upon advancement. The quality of the prep w as good with a mild amount of retained solid stool that was amenable to irrigation and suctioning. T he patient tolerated the procedure well with no immediate perioperative complications. FINDINGS: Digital rectal exam normal. Colon findings: Normal-appearing mucosa was seen in the terminal ileum as well as at the ileocecal v alve and appendiceal orifice. Normal-appearing mucosa was also seen in the cecum, ascending colon, t ransverse, descending, sigmoid colon, and rectum. Small hypertrophied anal papillae were seen on rec gricelda retroflexion. IMPRESSION: 1. Small hypertrophied anal papillae. 2. Normal colonoscopy. 3. No etiology for the patient's abdominal pain was seen during this examination. RECOMMENDATIONS: 1. We would continue patient on PPI as noted on upper endoscopy yesterday for acid reflux changes. 2. We will follow up on biopsies from the upper endoscopy yesterday. 3. We will follow up on liver labs obtained during this admission for evaluation of transaminitis. 4. If the patient's pain is improving, the patient could be [facility] the [facility] within 3 weeks.
[2018-05-29] MEDS ORDERED: PROPOFOL 200 MG/20 ML VIAL ONE (15:01)
--- NOTE | 2018-05-31 12:21 | DIS ---
DATE OF ADMISSION: 05/26/2018 DATE OF DISCHARGE: 05/29/2018 DISCHARGE DIAGNOSES: 1. Abdominal pain. 2. Uncontrolled diabetes. 3. Nausea, vomiting. HISTORY: This patient is a 38-year-old who presented to the emergency department complaining of some epigastric abdominal pain, nausea, and vomiting. The pain tended to radiate to her back. In the emergency department the patient's labs were notable for a blood sugar of 401. Her D-dimer was less than 0.27. Liver enzymes were very slightly elevated. Lipase was normal. Drug screen was negative and serology for acute hepatitis was negative. The patient was noted to have some tenderness in epigastrium on her exam. Of note, the patient had ultrasound of the gallbladder which was negative. She underwent a CT scan of her abdomen, which was concerning for some stenosis of the IVC with possible thrombosis in the iliacs. She subsequently had a venogram which showed no evidence of DVT in the lower extremities. HOSPITAL COURSE: The patient was admitted to the hospital and started on therapeutic doses of Lovenox. A CTA of the chest was obtained which was unremarkable. The radiologist was reconsulted regarding the findings given that were no lower extremity deep venous thromboses and there was a low D- dimer. Subsequent evaluation by the radiologist in consultation with several of the other radiologists, they felt strongly there was actually no evidence of any thrombosis at that time. Pelvic ultrasound was also obtained which was unremarkable. GI was consulted and the patient did subsequently undergo an EGD and then colonoscopy. Findings were unremarkable. The patient's symptoms did somewhat improve while she was in the hospital and she was able to tolerate a regular diet. GI felt like there may be non-GI related sources for her pain. Ultimately, with a negative workup and the patient's symptoms being reasonably controlled she was felt to be stable for discharge to home. DISPOSITION: The patient will be discharged. PHYSICAL EXAMINATION: VITAL SIGNS: At the time of discharge temperature is 98.0, pulse 63, respirations 16, O2 sat 98% on room air, BP is 138/78. GENERAL: The patient is awake, alert, oriented, pleasant. HEART: Regular rate and rhythm without murmurs. LUNGS: Clear bilaterally. ABDOMEN: Only reveals mild tenderness in the epigastrium and in the left subchondral space area. EXTREMITIES: Warm and dry. DISPOSITION: The patient will be discharged to home. She will remain on a diabetic diet and her activity level is as tolerated. She will have a prescription for metformin 500 mg 1 p.o. b.i.d. She is to follow up with her primary care provider to address the diabetes and consider further workup for non-GI sources for her pain as needed. Time spent in discharge activities 34 minutes. Greater than 50% spent in face to face counseling of patient regarding her condition and the treatment plan for her diabetes. MATTIE
== END 2018-05-29 15:38 | disposition home or self-care (01) | DRG 392 ==
LOC: ERS 14:53 → 2NO 18:50 → ERS 20:54
PROVIDERS: ADMIT Internal Medicine; ATTEND Internal Medicine
PROC: 0DB68ZX Excision of Stomach, Via Natural or Artificial Opening Endoscopic, Diagnostic (ICD-10-PCS; 2018-05-28)
PROC: 0DJD8ZZ Inspection of Lower Intestinal Tract, Via Natural or Artificial Opening Endoscopic (ICD-10-PCS; principal; 2018-05-29)
DX: R10.9 Unspecified abdominal pain (principal); E11.65 Type 2 diabetes mellitus with hyperglycemia; R10.12 Left upper quadrant pain; I10 Essential (primary) hypertension
CPT/HCPCS: 36415; 36416; 71275; 74177; 76705; 76856; 80048; 80053; 80074; 80306; 81003; 81025; 81240; 81241; 82103; 82274; 82390; 82550; 82728; 83036; 83090; 83516; 83540; 83550; 83690; 84443; 85025; 85240; 85300; 85303; 85305; 85307; 85379; 85598; 85610; 85730; 86038; 86147; 86225; 87389; 88305; 88312; 93005; 93970; 96361; 96372; 96374; 96375; 96376; A4216; C9113; J1650; J2001; J2270; J2405; J2704; Q0162

== ENCOUNTER 2019-03-08 15:28 | Emergency (ER) | payer SELFPAY ==
[2019-03-08 16:39] LABS: #Basophils 0.1 thou/uL (0.0-0.2); #Eosinphils 0.1 thou/uL (0.0-0.7); #Lymphocytes 2.8 thou/uL (1.20-3.40); #Monocytes 0.5 thou/uL (0.11-0.59); #Neutrophils 4.8 thou/uL (1.40-6.50); %Basophils 0.6 % (0.0-1.0); %Eosinophils 1.4 % (0.0-10.0); %Lymphocytes 34.2 % (21.0-51.0); %Monocytes 6.4 % (0.0-10.0); %Neutrophils 57.4 % (42.0-75.0); Hemoglobin 14.4 g/dL (12.0-16.0); Mean Corpuscular HGB CONC 33.9 g/dL (32.0-36.0); Mean Corpuscular Hemoglobin 32.5 pg (27.0-31.0); Mean Corpuscular Volume 95.9 fL (78.0-98.0); Mean Platelet Volume 9.3 fL (7.4-10.4); Platelet Count 210 thou/uL (130-400); RBC Distribution Width 11.3 % (11.5-14.5); Red Blood Cell (RBC) Count 4.45 mill/uL (4.20-5.40); White Blood Cell (WBC) Count 8.3 thou/uL (4.8-10.8)
[2019-03-08 17:03] LABS: ALT (SGPT) 139 U/L (8-55); AST (SGOT) 68 U/L (5-34); Albumin 4.2 g/dL (3.5-5.0); Alkaline Phosphatase 156 U/L (40-150); Anion Gap 11 mmol/L (10-20); BUN (Urea Nitrogen) 15 mg/dL (7.0-18.7); Bilirubin, Total 0.4 mg/dL (0.2-1.2); CK (CPK) 60 U/L (29-168); Calc. Creatinine Clearance 0 mL/min (70-130); Calcium 9.4 mg/dL (7.8-10.44); Carbon Dioxide 27 mmol/L (22-29); Chloride 102 mmol/L (98-107); Estimated GFR-MDRD Greater than 90; Glucose 262 mg/dL (70-105); Potassium 3.8 mmol/L (3.5-5.1); Protein, Total 7.2 g/dL (6.0-8.3); Sodium 136 mmol/L (136-145)
--- NOTE | 2019-03-08 17:14 | RAD ---
XR Chest Pa Lat STANDARD History: [Chest pain] Comparison: None. Findings: Lungs are clear. No pneumothorax or effusion. Cardiac silhouette and mediastinal contours a re within normal limits. Impression: No acute intrathoracic abnormality.
[2019-03-08 18:43] LABS: Bilirubin Negative (Negative); Blood, Urine Negative (Negative); Clarity CLEAR (Clear); Glucose, Urine (Dipstick) >=1000 mg/dL (Negative); Leukocyte Negative (Negative); Nitrite Negative (Negative); Protein, Urine (Dipstick) Negative (Neg-Trace); Specific Gravity, Urine 1.044 (1.002-1.036)
[2019-03-08 18:48] LABS: Pregnancy Test - Urine (BHCG) Negative (Negative); Pregu Control Background? CLEAR/WHITE (CLR/WHITE); Pregu Control Bar Appear? YES (CONTROL BAR); Specific Gravity 1.044 (1.002-1.036)
--- NOTE | 2019-03-08 21:48 | ULT ---
RIGHT UPPER QUADRANT ULTRASOUND: 03/08/19 HISTORY: Right upper quadrant pain, chest pain, nausea, diarrhea, bloating. FINDINGS: The liver density has increased echogenicity consistent with fatty infiltration. No focal mass or int rahepatic ductal dilatation is seen. No gallstones, gallbladder wall thickening or pericholecystic fl uid is identified. The common duct measures 4 mm in diameter. The pancreas is partially obscured. The visualized portions of the pancreas in the right kidney is normal. No free fluid is seen in Morriso n's pouch. IMPRESSION: 1. Fatty liver. 2. No evidence of cholelithiasis. POS: [facility]
--- NOTE | 2019-03-12 13:54 | EKG ---
Test Reason : Blood Pressure : / mmHG Vent. Rate : 081 BPM Atrial Rate : 081 BPM P-R Int : 138 ms QRS Dur : 076 ms QT Int : 380 ms P-R-T Axes : 036 044 009 degrees QTc Int : 441 ms Normal sinus rhythm with sinus arrhythmia Possible Left atrial enlargement Nonspecific T wave abnormality Abnormal ECG Confirmed by KHANG MILLIGAN DO ([id number]), news videotape editor ELIO IVAN ([id number]) on 03/12/2019 1:53:56 PM Referred By: Confirmed By:KHANG MILLIGAN DO
== END 2019-03-08 22:08 | disposition home or self-care (01) ==
LOC: ERS 15:28
DX: R07.9 Chest pain, unspecified (principal); E11.9 Type 2 diabetes mellitus without complications; I10 Essential (primary) hypertension; Z79.84 Long term (current) use of oral hypoglycemic drugs
CPT/HCPCS: 36415; 71046; 76705; 80053; 81003; 81025; 82550; 83880; 84484; 85025; 93005

== ENCOUNTER 2019-05-19 07:15 | Emergency (ER) | payer SELFPAY ==
[2019-05-19 10:52] LABS: Pregnancy Test - Urine (BHCG) Negative (Negative); Pregu Control Background? CLEAR/WHITE (CLR/WHITE); Pregu Control Bar Appear? YES (CONTROL BAR); Specific Gravity 1.045 (1.002-1.036)
[2019-05-19] MEDS ORDERED: Ketorolac Tromethamine 60 MG/2 ML VIAL ONE (11:04)
--- NOTE | 2019-05-19 11:48 | RAD ---
LEFT TIBIA AND FIBULA TWO VIEWS: HISTORY: Trauma. COMPARISON: None. FINDINGS: No fracture. No malalignment. Soft tissues are unremarkable. IMPRESSION: Intact tibia and fibula. POS: [facility]
--- NOTE | 2019-05-19 11:48 | RAD ---
RIGHT FOOT THREE VIEWS: HISTORY: Trauma. COMPARISON: None. FINDINGS: Small plantar calcaneal spur. No acute fracture or malalignment. Type I os naviculare. IMPRESSION: No acute fracture or malalignment. POS: [facility]
--- NOTE | 2019-05-19 11:49 | RAD ---
LEFT ANKLE THREE VIEWS: HISTORY: Trauma. COMPARISON: None. FINDINGS: No fracture. No malalignment. Soft tissue is unremarkable. Moderate dorsal and plantar calcaneal spurs. IMPRESSION: No acute fracture. POS: [facility]
--- NOTE | 2019-05-19 11:53 | RAD ---
LEFT FOOT 3 VIEWS: HISTORY: Trauma. COMPARISON: None. FINDINGS: There are 2 linear radiopaque foreign objects within the soft tissue between the 2nd and 3rd toes pro ximal phalanx base. Adjacent subcutaneous emphysema and soft tissue swelling extending into the soft tissues between the 1st and 2nd toes at the metatarsophalangeal joints. IMPRESSION: Two radiopaque linear foreign objects as described with subcutaneous gas and edema. POS: [facility]
== END 2019-05-19 11:27 | disposition home or self-care (01) ==
LOC: ERS 07:15
DX: S93.402A Sprain of unspecified ligament of left ankle, initial encounter (principal); E11.9 Type 2 diabetes mellitus without complications; Z79.84 Long term (current) use of oral hypoglycemic drugs; W01.0XXA Fall on same level from slipping, tripping and stumbling without subsequent striking against object, initial encounter
CPT/HCPCS: 81025; 96372; J1885

== ENCOUNTER 2020-01-04 09:38 | Emergency (ER) | payer SELFPAY ==
[2020-01-04 10:20] LABS: Bilirubin Negative (Negative); Blood, Urine Negative (Negative); Clarity Clear (Clear); Glucose, Urine (Dipstick) Greater than 1000 mg/dL (Negative); Leukocyte Negative Leu/uL (Negative); Nitrite Negative (Negative); Protein, Urine (Dipstick) Negative (Neg-Trace); Urobilinogen Normal mg/dL (Less than 2)
[2020-01-04 10:23] LABS: Pregnancy Test - Urine (BHCG) Negative (Negative); Pregu Control Background? CLEAR/WHITE (CLR/WHITE); Pregu Control Bar Appear? YES (CONTROL BAR); Specific Gravity 1.039 (1.002-1.036)
[2020-01-04 10:33] LABS: #Eosinphils 0.1 thou/uL (0.0-0.7); #Monocytes 0.5 thou/uL (0.11-0.59); #Neutrophils 12.5 thou/uL (1.40-6.50); %Basophils 0.2 % (0.0-1.0); %Eosinophils 0.6 % (0.0-10.0); %Lymphocytes 6.7 % (21.0-51.0); %Monocytes 3.4 % (0.0-10.0); %Neutrophils 89.1 % (42.0-75.0); Mean Corpuscular HGB CONC 33.1 g/dL (32.0-36.0); Mean Corpuscular Hemoglobin 32.1 pg (27.0-31.0); Mean Platelet Volume 9.2 fL (7.4-10.4); Platelet Count 205 thou/uL (130-400); RBC Distribution Width 11.1 % (11.5-14.5); Red Blood Cell (RBC) Count 4.98 mill/uL (4.20-5.40); White Blood Cell (WBC) Count 14.1 thou/uL (4.8-10.8)
[2020-01-04] MEDS ORDERED: Ketorolac Tromethamine 60 MG/2 ML VIAL ONE (10:39)
[2020-01-04] MEDS ORDERED: Ondansetron ODT 8 MG TAB ONE ×2 (10:39→12:06)
[2020-01-04 10:44] LABS: ALT (SGPT) 207 U/L (8-55); AST (SGOT) 133 U/L (5-34); Albumin 4.3 g/dL (3.5-5.0); Alkaline Phosphatase 156 U/L (40-110); Anion Gap 12 mmol/L (10-20); BUN (Urea Nitrogen) 11 mg/dL (7.0-18.7); Bilirubin, Total 1.1 mg/dL (0.2-1.2); Calc. Creatinine Clearance 0 mL/min (70-130); Calcium 9.1 mg/dL (7.8-10.44); Carbon Dioxide 25 mmol/L (22-29); Chloride 101 mmol/L (98-107); Estimated GFR-MDRD Greater than 90; Globulin 3.4 g/dL (2.4-3.5); Glucose 257 mg/dL (70-105); Lipase 25 U/L (8-78); Potassium 4.5 mmol/L (3.5-5.1); Protein, Total 7.7 g/dL (6.0-8.3); Sodium 133 mmol/L (136-145)
--- NOTE | 2020-01-04 12:45 | ULT ---
GALLBLADDER ULTRASOUND: HISTORY: Right upper quadrant abdominal pain FINDINGS: The liver demonstrates increased echogenicity without focal mass or intrahepatic biliary ductal dilat ation. No gallstones, gallbladder wall thickening or pericholecystic fluid are seen. There is suggestion of sludge in the gallbladder. The right kidney and visualized portions of the pancreas are normal. The common duct [id number] in diameter. No free fluid is seen in the Yen's pouch. IMPRESSION: 1. Fatty liver 2. No evidence of cholelithiasis.
== END 2020-01-04 14:20 | disposition home or self-care (01) ==
LOC: ERS 09:38
DX: R10.11 Right upper quadrant pain (principal); R10.30 Lower abdominal pain, unspecified; E11.9 Type 2 diabetes mellitus without complications; I10 Essential (primary) hypertension; Z79.84 Long term (current) use of oral hypoglycemic drugs; Z79.899 Other long term (current) drug therapy
CPT/HCPCS: 36415; 76705; 80053; 81003; 81025; 83690; 85025; 96372; J1885

== ENCOUNTER 2020-04-02 13:07 | Outpatient (CLI) | payer OTHER, SELFPAY ==
--- NOTE | 2020-04-02 13:56 | RAD ---
PA AND LATERAL CHEST: History: Shortness of breath. History of Covid, diagnosed in February. Upper lobe chest pain, cough. No known fever. FINDINGS: In comparison to the most recent prior exam dated 03-18-19, I do not see any definitive interval nolan e. Heart size and mediastinum are within normal limits. Lungs appear clear of any infiltrative proces s. IMPRESSION: No active intrathoracic disease. POS: [facility]
== END 2020-04-02 13:08 | disposition home or self-care (01) ==
LOC: SCSRAD 13:07
PROVIDERS: ATTEND Family Medicine
DX: R06.02 Shortness of breath (principal)
CPT/HCPCS: 71046

== ENCOUNTER 2020-06-25 11:15 | Emergency (ER) | payer SELFPAY ==
[2020-06-25] MEDS ORDERED: Metoclopramide HCl 10 MG/2 ML VIAL ONE (13:18)
[2020-06-25] MEDS ORDERED: diphenhydrAMINE 50 MG/ML VIAL ONE (13:18)
[2020-06-25] MEDS ORDERED: Ketorolac Tromethamine 30 MG/ML VIAL ONE (13:18)
--- NOTE | 2020-06-25 13:20 | RAD ---
XR Chest 1 View Portable HISTORY: Headache COMPARISON: None FINDINGS: The heart size is normal. The lungs are well expanded without focal areas of consolidation, pneumothorax or pleural effusions. IMPRESSION: No radiographic evidence of acute cardiopulmonary process.
[2020-06-25 14:04] LABS: BHCG - Serum Negative (NEGATIVE); Pregs Control Background? CLEAR/WHITE (CLR/WHITE); Pregs Control Bar Appear? YES (CONTROL BAR)
[2020-06-25 14:42] LABS: Bilirubin Negative (Negative); Blood, Urine Negative (Negative); Glucose, Urine (Dipstick) >=1000 mg/dL (Negative); Ketone, Urine Trace mg/dL (Negative); Leukocyte Negative (Negative); Nitrite Negative (Negative); Protein, Urine (Dipstick) Trace mg/dL (Neg-Trace); pH, Urine 6.5 (5.0-9.0)
[2020-06-25 14:43] LABS: Clarity Clear (Clear)
[2020-06-25 14:54] LABS: #Basophils 0.1 thou/uL (0.0-0.2); #Eosinphils 0.1 thou/uL (0.0-0.7); #Lymphocytes 2.1 thou/uL (1.20-3.40); #Monocytes 0.3 thou/uL (0.11-0.59); #Neutrophils 3.9 thou/uL (1.40-6.50); %Basophils 0.8 % (0.0-1.0); %Eosinophils 1.4 % (0.0-10.0); %Lymphocytes 32.7 % (21.0-51.0); %Monocytes 4.7 % (0.0-10.0); %Neutrophils 60.4 % (42.0-75.0); Hemoglobin 14.5 g/dL (12.0-16.0); Mean Corpuscular HGB CONC 33.6 g/dL (32.0-36.0); Mean Corpuscular Hemoglobin 32.4 pg (27.0-31.0); Mean Corpuscular Volume 96.4 fL (78.0-98.0); Mean Platelet Volume 9.1 fL (7.4-10.4); Platelet Count 189 thou/uL (130-400); RBC Distribution Width 11.1 % (11.5-14.5); Red Blood Cell (RBC) Count 4.46 mill/uL (4.20-5.40); White Blood Cell (WBC) Count 6.5 thou/uL (4.8-10.8)
[2020-06-25 15:16] LABS: ALT (SGPT) 115 U/L (8-55); AST (SGOT) 48 U/L (5-34); Albumin 3.9 g/dL (3.5-5.0); Alkaline Phosphatase 107 U/L (40-110); Anion Gap 11 mmol/L (10-20); BUN (Urea Nitrogen) 10 mg/dL (7.0-18.7); Bilirubin, Total 0.8 mg/dL (0.2-1.2); Calc. Creatinine Clearance 0 mL/min (70-130); Calcium 8.4 mg/dL (7.8-10.44); Carbon Dioxide 27 mmol/L (22-29); Chloride 104 mmol/L (98-107); Estimated GFR-MDRD Greater than 90; Globulin 2.9 g/dL (2.4-3.5); Glucose 216 mg/dL (70-105); Potassium 3.5 mmol/L (3.5-5.1); Protein, Total 6.8 g/dL (6.0-8.3); Sodium 138 mmol/L (136-145)
[2020-06-25 17:07] LABS: Hemoglobin A1c 11.4 % (4.0-6.0)
== END 2020-06-25 17:39 | disposition home or self-care (01) ==
LOC: ERS 11:15
DX: I10 Essential (primary) hypertension (principal); E11.65 Type 2 diabetes mellitus with hyperglycemia; R51 Headache; Z79.84 Long term (current) use of oral hypoglycemic drugs
CPT/HCPCS: 36415; 71045; 80053; 81003; 83036; 84443; 84484; 84703; 85025; 87086; 93005; 96365; 96375; J1200; J1885; J2765

== ENCOUNTER 2021-07-03 10:59 | Emergency (ER) | payer SELFPAY ==
[2021-07-03 22:15] LABS: SARS-CoV-2 PCR by NAA Not Detected (NotDetected)
== END 2021-07-03 12:50 | disposition home or self-care (01) ==
LOC: ERS 10:59
DX: R51.9 Headache, unspecified (principal); R06.02 Shortness of breath; Z20.822 Contact with and (suspected) exposure to COVID-19; E11.9 Type 2 diabetes mellitus without complications; I10 Essential (primary) hypertension; Z79.84 Long term (current) use of oral hypoglycemic drugs
CPT/HCPCS: 99283; U0003; U0005

== ENCOUNTER 2021-11-27 08:19 | Outpatient (CLI) | payer MEDICAID | END 2021-11-27 08:20 | disposition home or self-care (01) | LOC: BICMAMMO 08:19 → EDSTATUS 09:15 | PROVIDERS: ATTEND Family Medicine | DX: Z12.31 Encounter for screening mammogram for malignant neoplasm of breast (principal) | CPT/HCPCS: 77067 ==

== ENCOUNTER 2021-12-31 20:34 | Emergency (ER) | payer MEDICAID ==
[2021-12-31 21:20] LABS: #Eosinphils 0.1 thou/uL (0.0-0.7); #Monocytes 0.5 thou/uL (0.11-0.59); #Neutrophils 2.4 thou/uL (1.40-6.50); %Basophils 0.3 % (0.0-1.0); %Eosinophils 1.9 % (0.0-10.0); %Lymphocytes 25.9 % (21.0-51.0); %Monocytes 12.6 % (0.0-10.0); %Neutrophils 59.3 % (42.0-75.0); Hemoglobin 14.7 g/dL (12.0-16.0); Mean Corpuscular Hemoglobin 32.3 pg (27.0-31.0); Platelet Count 164 thou/uL (130-400); RBC Distribution Width 11.1 % (11.5-14.5); Red Blood Cell (RBC) Count 4.54 mill/uL (4.20-5.40)
[2021-12-31 21:34] LABS: Bilirubin Negative (Negative); Blood, Urine 3+ (Negative); Clarity Clear (Clear); Glucose, Urine (Dipstick) Greater than 1000 mg/dL (Negative); Ketone, Urine 40 mg/dL (Negative); Leukocyte Negative Leu/uL (Negative); Nitrite Negative (Negative); Protein, Urine (Dipstick) 30 mg/dL (Neg-Trace); Specific Gravity, Urine 1.044 (1.002-1.036); Squamous Epithelial None Seen HPF (0-3); pH, Urine 7.5 (5.0-9.0)
[2021-12-31 21:36] LABS: Pregnancy Test - Urine (BHCG) Negative (Negative); Pregu Control Background? CLEAR/WHITE (CLR/WHITE); Pregu Control Bar Appear? YES (CONTROL BAR); Specific Gravity 1.044 (1.002-1.036)
[2021-12-31 21:40] LABS: ALT (SGPT) 173 U/L (8-55); AST (SGOT) 116 U/L (5-34); Alkaline Phosphatase 145 U/L (40-110); Anion Gap 13 mmol/L (10-20); BUN (Urea Nitrogen) 9 mg/dL (7.0-18.7); Bilirubin, Total 1.7 mg/dL (0.2-1.2); Calc. Creatinine Clearance 0 mL/min (70-130); Calcium 8.9 mg/dL (7.8-10.44); Carbon Dioxide 24 mmol/L (22-29); Chloride 100 mmol/L (98-107); Globulin 3.6 g/dL (2.4-3.5); Glucose 239 mg/dL (70-105); Lipase 30 U/L (8-78); Potassium 3.8 mmol/L (3.5-5.1); Protein, Total 7.6 g/dL (6.0-8.3); Sodium 133 mmol/L (136-145)
[2021-12-31 21:43] LABS: Bacteria/HPF None Seen HPF (None Seen); RBC/HPF Greater than 50 HPF (0-3); WBC/HPF 0-3 HPF (0-3)
[2021-12-31] MEDS ORDERED: Lidocaine Viscous Sol 2% 15 ml UD Cup ONE (22:56)
[2021-12-31] MEDS ORDERED: Mag-Al 1200 mg/1200 mg/30 ML UDCUP ONE (22:57)
[2021-12-31] MEDS ORDERED: Ondansetron PF 4 MG/2 ML Vial ONE (22:57)
== END 2022-01-01 00:49 | disposition home or self-care (01) ==
LOC: ERS 20:34
DX: R10.12 Left upper quadrant pain (principal); I10 Essential (primary) hypertension; E11.9 Type 2 diabetes mellitus without complications; Z79.84 Long term (current) use of oral hypoglycemic drugs; Z79.899 Other long term (current) drug therapy
CPT/HCPCS: 36415; 36416; 74177; 80053; 81003; 81015; 81025; 83690; 85025; 96372; 96374; J0500; J2405

== ENCOUNTER 2022-07-28 09:41 | Emergency (ER) | payer MEDICAID, OTHER ==
[2022-07-28] MEDS ORDERED: Pantoprazole 40 MG VIAL ONE (10:33)
[2022-07-28] MEDS ORDERED: Morphine 4 MG/ML VIAL ONE (10:33)
[2022-07-28] MEDS ORDERED: Ondansetron PF 4 MG/2 ML Vial ONE (10:34)
[2022-07-28 11:02] LABS: #Eosinphils 0.1 thou/uL (0.0-0.7); #Lymphocytes 2.5 thou/uL (1.20-3.40); #Monocytes 0.4 thou/uL (0.11-0.59); %Basophils 0.6 % (0.0-1.0); %Eosinophils 1.1 % (0.0-10.0); %Lymphocytes 30.6 % (21.0-51.0); %Monocytes 5.1 % (0.0-10.0); %Neutrophils 62.7 % (42.0-75.0); Hemoglobin 14.9 g/dL (12.0-16.0); Mean Corpuscular HGB CONC 33.3 g/dL (32.0-36.0); Mean Corpuscular Hemoglobin 32.2 pg (27.0-31.0); Mean Corpuscular Volume 96.6 fL (78.0-98.0); Mean Platelet Volume 8.7 fL (7.4-10.4); Platelet Count 197 thou/uL (130-400); RBC Distribution Width 11.1 % (11.5-14.5); Red Blood Cell (RBC) Count 4.62 mill/uL (4.20-5.40)
[2022-07-28 11:23] LABS: ALT (SGPT) 124 U/L (8-55); AST (SGOT) 83 U/L (5-34); Albumin 3.9 g/dL (3.5-5.0); Alkaline Phosphatase 101 U/L (40-110); Anion Gap 14 mmol/L (10-20); BUN (Urea Nitrogen) 11 mg/dL (7.0-18.7); Bilirubin, Total 1.2 mg/dL (0.2-1.2); CK (CPK) 41 U/L (29-168); Calc. Creatinine Clearance 0 mL/min (70-130); Calcium 8.8 mg/dL (7.8-10.44); Carbon Dioxide 22 mmol/L (22-29); Chloride 104 mmol/L (98-107); Estimated GFR 115; Globulin 3.2 g/dL (2.4-3.5); Glucose 238 mg/dL (70-105); Lipase 21 U/L (8-78); Protein, Total 7.1 g/dL (6.0-8.3); Sodium 136 mmol/L (136-145)
[2022-07-28 11:58] LABS: Bilirubin Negative (Negative); Blood, Urine Negative (Negative); Clarity Clear (Clear); Glucose, Urine (Dipstick) Greater than 1000 mg/dL (Negative); Ketone, Urine 40 mg/dL (Negative); Leukocyte Negative Leu/uL (Negative); Nitrite Negative (Negative); Protein, Urine (Dipstick) 20 mg/dL (Neg-Trace); Urobilinogen Normal mg/dL (Less than 2); pH, Urine 5.5 (5.0-9.0)
[2022-07-28 11:59] LABS: Specific Gravity, Urine 1.053 (1.002-1.036)
== END 2022-07-28 13:35 | disposition home or self-care (01) ==
LOC: ERS 09:41
DX: K80.20 Calculus of gallbladder without cholecystitis without obstruction (principal); I10 Essential (primary) hypertension; E11.9 Type 2 diabetes mellitus without complications; Z79.84 Long term (current) use of oral hypoglycemic drugs
CPT/HCPCS: 76705; 80053; 81003; 82550; 83690; 84484; 85025; 93005; 96374; 96375; C9113; J2270; J2405

== ENCOUNTER 2023-10-26 19:02 | Emergency (ER) | payer OTHER ==
[~2023-10-26 19:02] MED LIST changes: -ISOVUE-370 76%-LOCM 1 ML ONE; +Iopamidol-370 76% 500 ML MDV (1 ML CHARGE) ONE
[2023-10-26 19:27] LABS: Bilirubin Negative (Negative); Blood, Urine 3+ (Negative); CAUTI Indications for Culture Pelvic or flank pain; Clarity Turbid (Clear); Glucose, Urine (Dipstick) 500 mg/dL (Negative); Ketone, Urine 80 mg/dL (Negative); Leukocyte Negative Leu/uL (Negative); Mucous/LPF 1+ LPF (<2+); Nitrite Negative (Negative); Protein, Urine (Dipstick) 100 mg/dL (Neg-Trace); RBC/HPF 0-3 HPF (0-3); Squamous Epithelial 21-50 HPF (0-3); Urobilinogen 3 mg/dL (Less than 2); WBC/HPF 0-3 HPF (0-3); Yeast-Budding Rare HPF (None Seen); pH, Urine 5.5 (5.0-9.0)
[2023-10-26 19:28] LABS: Pregnancy Test - Urine (BHCG) Negative (Negative); Pregu Control Background? CLEAR/WHITE (CLR/WHITE); Pregu Control Bar Appear? YES (CONTROL BAR)
[2023-10-26 19:32] LABS: Bacteria/HPF 2+ HPF (None Seen)
[2023-10-26 19:33] LABS: Other Microscopic Description Less than 2 mL rec'd
[2023-10-26 19:35] LABS: Urine Culture Reflex No No
[2023-10-26 19:42] LABS: #Eosinphils 0.1 thou/uL (0.0-0.7); #Monocytes 0.4 thou/uL (0.11-0.59); #Neutrophils 5.2 thou/uL (1.40-6.50); %Basophils 0.3 % (0.0-1.0); %Eosinophils 0.9 % (0.0-10.0); %Lymphocytes 18.1 % (21.0-51.0); %Monocytes 5.7 % (0.0-10.0); %Neutrophils 74.6 % (42.0-75.0); Hematocrit 44.8 % (36.0-47.0); Hemoglobin 15.3 g/dL (12.0-16.0); Mean Corpuscular HGB CONC 34.2 g/dL (32.0-36.0); Mean Corpuscular Hemoglobin 32.4 pg (27.0-31.0); Mean Corpuscular Volume 94.9 fl (78.0-98.0); Mean Platelet Volume 10.7 fL (7.4-10.4); Platelet Count 222 10x3/uL (130-400); RBC Distribution Width 11.9 % (11.5-14.5); Red Blood Cell (RBC) Count 4.72 mill/uL (4.20-5.40)
[2023-10-26 20:07] LABS: ALT (SGPT) 81 U/L (8-55); AST (SGOT) 71 U/L (5-34); Albumin 4.3 g/dL (3.5-5.0); Alkaline Phosphatase 94 U/L (40-110); Anion Gap 13 mmol/L (10-20); BUN (Urea Nitrogen) 13 mg/dL (7.0-18.7); Bilirubin, Total 1.9 mg/dL (0.2-1.2); Calc. Creatinine Clearance 0 mL/min (70-130); Calcium 9.4 mg/dL (7.8-10.44); Carbon Dioxide 25 mmol/L (22-29); Chloride 101 mmol/L (98-107); Estimated GFR 110; Globulin 3.3 g/dL (2.4-3.5); Glucose 218 mg/dL (70-105); Potassium 4.2 mmol/L (3.5-5.1); Protein, Total 7.6 g/dL (6.0-8.3); Sodium 135 mmol/L (136-145)
[2023-10-26] MEDS ORDERED: Ondansetron PF 4 MG/2 ML Vial ONE (20:15)
[2023-10-26] MEDS ORDERED: Ketorolac Tromethamine 30 MG/ML VIAL ONE (20:15)
[2023-10-26 21:21] LABS: Bacteria/HPF None Seen HPF (None Seen); Bilirubin Negative (Negative); Blood, Urine 1+ (Negative); CAUTI Indications for Culture Dysuria,urgency,freq; Clarity Clear (Clear); Glucose, Urine (Dipstick) >=1000 mg/dL (Negative); Ketone, Urine 100 mg/dL (Negative); Leukocyte Negative Leu/uL (Negative); Mucous/LPF Rare LPF (<2+); Nitrite Negative (Negative); Protein, Urine (Dipstick) 50 mg/dL (Neg-Trace); WBC/HPF 0-3 HPF (0-3); Yeast-Budding Rare HPF (None Seen); pH, Urine 5.5 (5.0-9.0)
[2023-10-26 21:24] LABS: Urine Culture Reflex No No
== END 2023-10-26 21:37 | disposition home or self-care (01) ==
LOC: ERS 19:02
DX: R10.84 Generalized abdominal pain (principal); R11.2 Nausea with vomiting, unspecified; E11.9 Type 2 diabetes mellitus without complications; I10 Essential (primary) hypertension
CPT/HCPCS: 36415; 74177; 80053; 81001; 81025; 85025; 87086; 96361; 96374; 96375; J1885; J2405; Q9967